=== PATIENT | male | born 1960 | race Caucasian/White ===

== ENCOUNTER 2021-12-31 14:51 | Inpatient (IN) ==
[2021-12-31 18:02] LABS: Basophils % 0.2 %; Eosinophils % 0.1 %; Hematocrit 39.4 % (37.5-50.1); Hemoglobin 13.3 g/dL (12.9-16.9); Immature Granulocytes % 1.3 % (0-4); Lymphocytes # 1.1 K/mcL (0.6-4.6); Lymphocytes % 8.2 %; Mean Corpuscular HGB Conc 33.8 g/dL (31.6-35.5); Mean Corpuscular Hemoglobin 31.7 pg (28.0-33.3); Mean Corpuscular Volume 93.8 fL (83.0-100.0); Mean Platelet Volume 9.8 fL (9.4-12.4); Monocytes % 7.3 %; Platelet Count 247 K/mcL (140-400); Red Cell Distribution Width 14.2 % (11.5-14.5); Segmented Neutrophils % 82.9 %; White Blood Count 13.3 K/mcL (4.3-11.1)
[2021-12-31 18:12] LABS: Calcium 9.1 mg/dL (8.6-10.3); Potassium 3.6 mEq/L (3.5-5.1)
[2021-12-31] MEDS ORDERED: 0.9 % Sodium Chloride 1,000 ML IVC ONE (18:39)
[2021-12-31] MEDS ORDERED: Isovue-370 500 ML BOTTLE IVP ONE (18:39)
[2021-12-31] MEDS ORDERED: Vancomycin 1,500 MG/265 ML IV.SOLN IVPB ONE (19:00)
[2021-12-31] MEDS ORDERED: *HR* Heparin 5,000 UNIT/ML VIAL IVP ONE (23:56)
[2021-12-31] MEDS ORDERED: *HR* Heparin 5,000 UNIT/ML VIAL IVP PRN (23:56)
[2022-01-01] MEDS ORDERED: Levalbuterol Neb 1.25 MG/3 ML IH PRN (00:06)
[2022-01-01] MEDS ORDERED: Naloxone 0.4 MG/ML INJ IVP PRN (00:07)
[2022-01-01] MEDS ORDERED: Acetaminophen 325 MG TABLET PO PRN (00:07)
[2022-01-01] MEDS ORDERED: Ringers Solution, Lactated 1,000 ML IVC SCH (00:15)
[2022-01-01] MEDS: Cefepime HCl 2,000 MG in 0.9 % Sodium Chloride Mini Bag 100 ML IVPB SCH ×2 (00:51→23:22)
[2022-01-01] MEDS: 0.9 % Sodium Chloride 1,000 ML IVC SCH ×2 (00:52→11:56)
[2022-01-01] MEDS: Heparin 25,000UNIT/250ML 1/2NS 25,000 UNIT/250 ML IV.SOLN IVC SCH ×2 (00:52→16:42)
[2022-01-01 02:38] LABS: INR 1.4; Prothrombin Time 16.1 Seconds (9.4-12.1)
[2022-01-01 02:41] LABS: Activated Partial Thrombo Time 72.3 Seconds (26.0-36.0)
[2022-01-01 02:50] LABS: Hematocrit 33.7 % (37.5-50.1); Mean Corpuscular HGB Conc 33.5 g/dL (31.6-35.5); Mean Corpuscular Hemoglobin 31.4 pg (28.0-33.3); Mean Corpuscular Volume 93.6 fL (83.0-100.0); Mean Platelet Volume 9.8 fL (9.4-12.4); Platelet Count 239 K/mcL (140-400); Red Cell Distribution Width 14.1 % (11.5-14.5); White Blood Count 12.1 K/mcL (4.3-11.1)
[2022-01-01 02:51] LABS: Hemoglobin 11.3 g/dL (12.9-16.9)
[2022-01-01 03:00] LABS: Estimated Average Glucose 126 mg/dl
[2022-01-01 07:55] LABS: BUN/Creatinine Ratio 23 (6-26); Blood Urea Nitrogen 19 mg/dL (8-23); Calcium 8.1 mg/dL (8.6-10.3); Carbon Dioxide 24 mEq/L (23-29); Chloride 100 mEq/L (98-107); Chol/HDL Ratio 5.4 (0-4.9); Cholesterol 102 mg/dL (< 200); Glucose 127 mg/dL (70-105); HDL Cholesterol 19 mg/dL (40-59); LDL Cholesterol,Calculated 59 mg/dL (< 100); Magnesium 1.7 mg/dL (1.6-2.6); Osmolality,Calculated 280 (280-300); Potassium 3.2 mEq/L (3.5-5.1); Sodium 133 mEq/L (136-145); Triglycerides 120 mg/dL (< 150); Troponin I 0.13 ng/mL (< 0.04); eGFR For African Americans > 60 (> 60); eGFR For Non-African Americans > 60 (> 60)
[2022-01-01] MEDS: Vancomycin 1,250 MG/262.5 ML IV.SOLN IVPB SCH ×2 (08:12→18:05)
[2022-01-01] MEDS: *HR* Heparin 5,000 UNIT/ML VIAL IVP PRN ×2 (10:03→23:23)
[2022-01-01] MEDS ORDERED: Isovue-370 500 ML BOTTLE IVP ONE (10:38)
[2022-01-01] MEDS: Gabapentin 300 MG CAPSULE PO SCH ×4 (12:47→23:22)
[2022-01-01 14:56] LABS: Bacteria,Urine Few per hpf (None-Few); Bilirubin,Urine Negative (Negative); Blood,Urine Negative (Negative); Clarity,Urine Clear (Clear); Color,Urine Yellow (Yellow); Glucose,Urine (UA) Normal (Normal); Ketones,Urine Negative (Negative); Leukocyte Esterase,Urine Negative (Negative); Mucus,Urine Few per lpf (None-Few); Nitrite,Urine Negative (Negative); Protein,Urine 50 mg/dL (Neg-Trace); RBC,Urine 0-3 per hpf (0-3); Specific Gravity,Urine 1.028 (1.010-1.025); Squamous Epithelial Cell,Urine Few per hpf (None-Few); Urobilinogen,Urine Normal (Normal)
[2022-01-01] MEDS ORDERED: Perflutren Lipid Microsphere 1.3 ML in 0.9 % Sodium Chloride 8.7 ML IVP PRN (15:00)
[2022-01-02 02:18] LABS: Hematocrit 32.1 % (37.5-50.1); Hemoglobin 10.7 g/dL (12.9-16.9); Mean Corpuscular HGB Conc 33.3 g/dL (31.6-35.5); Mean Corpuscular Hemoglobin 31.1 pg (28.0-33.3); Mean Corpuscular Volume 93.3 fL (83.0-100.0); Mean Platelet Volume 9.5 fL (9.4-12.4); Platelet Count 275 K/mcL (140-400); Red Blood Count 3.44 M/mcL (4.19-5.50); Red Cell Distribution Width 14.1 % (11.5-14.5); White Blood Count 10.7 K/mcL (4.3-11.1)
[2022-01-02 02:38] LABS: BUN/Creatinine Ratio 19 (6-26); Blood Urea Nitrogen 14 mg/dL (8-23); Calcium 7.7 mg/dL (8.6-10.3); Carbon Dioxide 25 mEq/L (23-29); Chloride 103 mEq/L (98-107); Glucose 82 mg/dL (70-105); Osmolality,Calculated 280 (280-300); Potassium 3.4 mEq/L (3.5-5.1); Sodium 135 mEq/L (136-145); eGFR For African Americans > 60 (> 60); eGFR For Non-African Americans > 60 (> 60)
[2022-01-02] MEDS: Heparin 25,000UNIT/250ML 1/2NS 25,000 UNIT/250 ML IV.SOLN IVC SCH (03:07)
[2022-01-02] MEDS: Gabapentin 300 MG CAPSULE PO SCH ×6 (03:07→23:37)
[2022-01-02] MEDS: *HR* Heparin 5,000 UNIT/ML VIAL IVP PRN (06:01)
[2022-01-02] MEDS: Vancomycin 1,250 MG/262.5 ML IV.SOLN IVPB SCH ×2 (06:01→18:30)
[2022-01-02] MEDS: Methadone Oral Concentrate 50 MG/5 ML UDC PO SCH (08:57)
[2022-01-02] MEDS: Cefepime HCl 2,000 MG in 0.9 % Sodium Chloride Mini Bag 100 ML IVPB SCH (23:37)
[2022-01-03 01:37] LABS: Basophils % 0.1 %; Eosinophils # 0.1 K/mcL (0.0-0.6); Eosinophils % 1.3 %; Hematocrit 31.9 % (37.5-50.1); Hemoglobin 10.5 g/dL (12.9-16.9); Immature Granulocytes % 1.1 % (0-4); Lymphocytes # 1.1 K/mcL (0.6-4.6); Lymphocytes % 13.8 %; Mean Corpuscular HGB Conc 32.9 g/dL (31.6-35.5); Mean Corpuscular Hemoglobin 31.1 pg (28.0-33.3); Mean Corpuscular Volume 94.4 fL (83.0-100.0); Mean Platelet Volume 9.5 fL (9.4-12.4); Monocytes # 0.6 K/mcL (0.0-1.3); Monocytes % 7.6 %; Platelet Count 275 K/mcL (140-400); Red Blood Count 3.38 M/mcL (4.19-5.50); Red Cell Distribution Width 14.1 % (11.5-14.5); Segmented Neutrophils % 76.1 %; White Blood Count 7.9 K/mcL (4.3-11.1)
[2022-01-03 01:47] LABS: BUN/Creatinine Ratio 18 (6-26); Blood Urea Nitrogen 13 mg/dL (8-23); Calcium 7.7 mg/dL (8.6-10.3); Carbon Dioxide 25 mEq/L (23-29); Chloride 102 mEq/L (98-107); Glucose 102 mg/dL (70-105); Osmolality,Calculated 278 (280-300); Potassium 3.4 mEq/L (3.5-5.1); Sodium 134 mEq/L (136-145); eGFR For African Americans > 60 (> 60); eGFR For Non-African Americans > 60 (> 60)
[2022-01-03] MEDS: Gabapentin 300 MG CAPSULE PO SCH ×3 (03:19→11:51)
[2022-01-03] MEDS: Vancomycin 1,250 MG/262.5 ML IV.SOLN IVPB SCH (06:04)
[2022-01-03] MEDS: Methadone Oral Concentrate 50 MG/5 ML UDC PO SCH (08:58)
[2022-01-03 11:51] VITALS: BP 179/79; PULSE 79; TEMP 97.4; O2SAT 93
== END 2022-01-03 16:40 | disposition left against medical advice (07) | DRG 871 ==
LOC: 3BNU 14:51 → EMEROOARM 14:51 → SUATTDRO 21:38 → 3BNU 21:58
PROVIDERS: ADMIT Student in an Organized Health Care Education/Training Program; ATTEND Registered Nurse